=== PATIENT | female | born 1955 | race Caucasian/White ===

== ENCOUNTER 2021-01-22 00:52 | Day surgery (SDC) | payer OTHER, SELFPAY ==
[2021-01-15 11:40] VITALS: BMI 25.7
[2021-01-22 06:22] VITALS: BP 128/85; PULSE 69; RESP 17; TEMP 37.2; O2SAT 98; BMI 25.7
[2021-01-22] MEDS: LACTATED RINGERS 1,000 ML 150 ML IV CONT (06:33)
--- NOTE | 2021-01-22 06:41 | WPDANESEPPF ---
Anes - Initial Pre Proc Eval Procedure: Operation Date: 01/22/21 07:30 Proposed Procedures p Screening Colonoscopy - Davide Sanchez MD Date/Time: 01/22/21 06:41 Surgeon: Davide Sanchez MD Pre Op Diagnosis: neoplasm screening Patient Data Age: 65 Gender: F Height: 1.63 m Weight: 67.9 kg Last Vital Signs Temp 37.2 C 01/22/21 06:22 Pulse 69 01/22/21 06:22 Resp 17 01/22/21 06:22 BP 128/85 01/22/21 06:22 Pulse Ox 98 01/22/21 06:22 Allergies Allergy/AdvReac Type Severity Reaction Status Date / Time adhesive Allergy Severe RED RASH, Verified 01/22/21 06:21 ITCHING latex Allergy Severe RED SORES Verified 01/22/21 06:21 Home Medications Medication Instructions Recorded Confirmed Type calcium carbonate 500 mg calcium 500 mg PO DAILY 12/26/20 01/22/21 History (1,250 mg) tablet cholecalciferol (vitamin D3) 25 25 mcg PO DAILY 12/26/20 01/22/21 History mcg (1,000 unit) capsule multivitamin 1 tablet PO DAILY 12/26/20 01/22/21 History magnesium oxide 250 mg PO DAILY 01/15/21 01/22/21 History Patient hx anesthesia problems: none Family hx anesthesia problems: none PMFSH Past Medical History Medical History (Updated 01/22/21 @ 06:48 by Jose Hopkins DO) Hernia History of thyroid nodule removed History of vaginal delivery x 3 Surgical History Surgical History History of bilateral oophorectomy History of dilation and curettage History of hysterectomy, supracervical History of thyroidectomy History of tubal ligation Family History Family History Mother Hypertension, Onset Age: 84 Patient's mother is Grandparent Family history of coronary artery disease, Onset Age: 72 Father Patient's father is Social History Social History Smoking status: Never smoker Second hand tobacco smoke exposure: No Alcohol intake: current Drinks per week: 1 Substance use: never Living arrangements: with family Spiritual care concerns: No Anes - Eval Final PreProcedure Day of Procedure 01/22/21 06:41 Patient weight: overweight Heart: regular rate and rhythm Lungs: clear to auscultation and normal air movement Airway: Mallampati scale class II Neurological: alert and oriented Last oral intake: >/= 8 hours ASA classification: II Emergent: no Anesthetic plan: proceed Anesthesia type and monitoring: general GIVS and standard monitoring Informed Consent: The patient's anesthetic plan and its attendant risks and benefits were discussed with the patient/family/POA. Questions were solicited and answers provided to the satisfaction of the patient/family/POA.
--- NOTE | 2021-01-22 07:50 | WPDGICN ---
Assessment and Plan Assessment and plan (1) Encounter for screening colonoscopy: Code(s): Z12.11 - Encounter for screening for malignant neoplasm of colon Status: Acute Assessment and Plan: Patient presents for screening colonoscopy today. She appears to be at average risk for colon polyps. GI Consult Note Consult date/time: 01/22/21 07:50 HPI: Sera Mayorga is a 65 year old female Presents for screening colonoscopy. She reports that her current weight appetite bowel movements are normal. She denies abdominal pain. She has had bleeding. Family history is noncontributory. Patient presents for screening colonoscopy today. Review of Systems Review of Systems: All systems reviewed & are unremarkable except as noted in HPI and below PMFSH Past Medical History Medical History (Updated 01/22/21 @ 07:51 by Davide Sanchez MD) Hernia History of thyroid nodule removed History of vaginal delivery x 3 Surgical History Surgical History History of bilateral oophorectomy History of dilation and curettage History of hysterectomy, supracervical History of thyroidectomy History of tubal ligation Family History Family History Mother Hypertension, Onset Age: 84 Patient's mother is Grandparent Family history of coronary artery disease, Onset Age: 72 Father Patient's father is Social History Social History Smoking status: Never smoker Second hand tobacco smoke exposure: No Alcohol intake: current Drinks per week: 1 Substance use: never Living arrangements: with family Spiritual care concerns: No Meds Home Medications and Allergies Home Medications Medication Instructions Recorded Confirmed Type calcium carbonate 500 mg calcium 500 mg PO DAILY 12/26/20 01/22/21 History (1,250 mg) tablet cholecalciferol (vitamin D3) 25 25 mcg PO DAILY 12/26/20 01/22/21 History mcg (1,000 unit) capsule multivitamin 1 tablet PO DAILY 12/26/20 01/22/21 History magnesium oxide 250 mg PO DAILY 01/15/21 01/22/21 History Allergies Allergy/AdvReac Type Severity Reaction Status Date / Time adhesive Allergy Severe RED RASH, Verified 01/22/21 06:21 ITCHING latex Allergy Severe RED SORES Verified 01/22/21 06:21 Vital Signs Vital Signs - 24 hr 01/22/21 06:22 Temperature 99 F Pulse Rate 69 Respiratory Rate 17 Blood Pressure 128/85 Pulse Oximetry 98 Exam Narrative: Physical exam reveals patient to be alert. Vital signs are stable. HEENT exam is unremarkable. Patient is anicteric. Lungs are clear to auscultation and percussion. Heart is without murmur or extra sounds. Abdominal exam bowel sounds are present soft nontender with no organomegaly. Digital external rectal exam is normal.
[2021-01-22 07:51] VITALS: BP 101/55; PULSE 64; RESP 17; O2SAT 99
[2021-01-22 08:01] VITALS: BP 104/56; PULSE 67; RESP 17; O2SAT 97
[2021-01-22 08:11] VITALS: BP 102/62; PULSE 60; RESP 17; O2SAT 100
== END 2021-01-22 08:25 | disposition home or self-care (01) ==
PROVIDERS: PCP Internal Medicine; Visit Provider Internal Medicine Gastroenterology
PROC: 0DJD8ZZ Inspection of Lower Intestinal Tract, Via Natural or Artificial Opening Endoscopic (ICD-10-PCS; CPT 45378; principal; 2021-01-22 07:30)
DX: Z12.11 Encounter for screening for malignant neoplasm of colon (principal)
CPT/HCPCS: 45378; J2001; J2704; J7120

== ENCOUNTER 2021-09-23 23:40 | Emergency (ER) | payer MEDICARE, SELFPAY ==
[2021-09-23 23:56] VITALS: BP 113/69; PULSE 65; RESP 16; TEMP 37.2; O2SAT 98
--- NOTE | 2021-09-24 02:12 | PC.NURSE ---
Pt and family approached triage desk over concerns for wait time, stating they are going to leave. Pt ambulated out of ED with steady gait, in no obvious distress
== END 2021-09-24 03:22 | disposition left against medical advice (07) ==
LOC: ANHED 09-24 02:58
PROVIDERS: PCP Internal Medicine
DX: M79.669 Pain in unspecified lower leg (principal)
CPT/HCPCS: 99199

== ENCOUNTER 2022-08-11 08:00 | Outpatient (NON) | payer MEDICARE, SELFPAY | END 2022-08-11 08:01 | disposition home or self-care (01) | LOC: ANHLAB 08-12 12:44 | PROVIDERS: PCP Internal Medicine; Visit Provider Nurse Practitioner | DX: R22.9 Localized swelling, mass and lump, unspecified (principal) | CPT/HCPCS: 87070; 87075; 87205 ==

== ENCOUNTER 2023-06-13 10:14 | Emergency (ER) | payer MEDICARE, SELFPAY ==
[2023-06-13 10:32] VITALS: BP 97/62; PULSE 79; RESP 16; TEMP 37; O2SAT 97
--- NOTE | 2023-06-13 10:45 | ED.URI ---
HPI - URI/Sore Throat General Chief Complaint: Upper Respiratory Infection Stated Complaint: FEVER/BODY ACHES/NAUSEA/COUGH Time Seen by Provider: 06/13/23 10:45 Source: patient and RN notes reviewed Mode of arrival: ambulatory Limitations: no limitations History of Present Illness HPI Narrative: 67-year-old female presents with 4 day history of cough, chest congestion, nasal congestion, chills, fever. Reports symptoms started on Thursday. Reports she has been taking ibuprofen. MD elicited complaint: cough and sore throat Related Data Home Medications Medication Instructions Recorded Confirmed calcium carbonate 500 mg calcium 500 mg PO DAILY 12/26/20 06/13/23 (1,250 mg) tablet (Calcium 500) cholecalciferol (vitamin D3) 25 25 mcg PO DAILY 12/26/20 06/13/23 mcg (1,000 unit) capsule multivitamin (Daily Multi-Vitamin 1 tablet PO DAILY 12/26/20 06/13/23 tablet) glucosamine-chondroitin 250 mg-200 2 tablet PO DAILY 09/23/22 06/13/23 mg tablet (Osteo Bi-Flex) Allergies Allergy/AdvReac Type Severity Reaction Status Date / Time adhesive Allergy Severe RED RASH, Verified 06/13/23 10:24 ITCHING latex Allergy Severe RED SORES Verified 06/13/23 10:24 Review of Systems Review of Systems: CONSTITUTIONAL: Denies malaise, chills, sweats, or fever. EYES: Denies visual changes, redness, or discharge. ENT: Reports rhinorrhea, congestion CARDIOVASCULAR: Denies chest pain, palpitations, or edema. RESPIRATORY: Reports cough and chest congestion. Denies dyspnea. GASTROINTESTINAL: Denies abdominal pain, nausea, vomiting, diarrhea SKIN: Denies rash or itching. MUSCULOSKELETAL: Reports myalgia. All systems reviewed & are unremarkable except as noted in HPI and below PMFSH Past Medical History Medical History (Updated 06/13/23 @ 10:53 by Lubna Hernandez NP) Annual physical exam Encounter for annual routine gynecological examination Encounter for screening for malignant neoplasm of colon (06/10/16) Encounter for screening for malignant neoplasm of rectum (06/07/15) Hammer toe Hernia History of thyroid nodule removed History of vaginal delivery x 3 Hypothyroidism Nail fungus Postmenopausal Screening for cervical cancer Screening for cholesterol level Vitamin D deficiency Surgical History Surgical History History of bilateral oophorectomy History of dilation and curettage History of hysterectomy, supracervical History of thyroidectomy History of tubal ligation Family History Family History Mother Hypertension, Onset Age: 84 Patient's mother is Grandparent Family history of coronary artery disease, Onset Age: 72 Father Patient's father is Social History Social History (Updated 09/23/22 @ 09:03 by Ignacia Bey) Smoking status: Never smoker Second hand tobacco smoke exposure: No Alcohol intake: current Drinks per week: 1 Substance use: never Substance use type: does not use Lack of Transportation: No Lack of Food: Never True Current Housing: I Have Housing Concerned About Future Housing: No Difficulty Paying Gas/Electric Bills: No Difficulty Paying for Meds: No Currently Unemployed: No Difficulty w/ Childcare or Family Care: No Living arrangements: with family Occupation/Education: retired Gender identity (if verbalized by the patient): Female Sexual Orientation (if Verbalized by the Patient): Straight or Heterosexual Spiritual care concerns: No Comments At time of signature, agree with nursing past medical, surgical, social and family history. There is no relevant family history pertinent to the presenting complaint Exam Narrative: GENERAL: Nontoxic-appearing, well-nourished, and in no acute distress. HEAD: Normocephalic EYES: PERRLA, conjunctivae clear ENT: Nares clear. Mucous me
== END 2023-06-13 11:00 | disposition home or self-care (01) ==
PROVIDERS: Emergency Provider Nurse Practitioner; PCP Family Medicine
DX: J10.1 Influenza due to other identified influenza virus with other respiratory manifestations (principal); Z20.822 Contact with and (suspected) exposure to COVID-19; E89.0 Postprocedural hypothyroidism
CPT/HCPCS: 87426; 87804; 99213; G0463

== ENCOUNTER 2023-11-12 17:48 | Emergency (ER) | payer MEDICARE, SELFPAY ==
--- NOTE | ~2023-11-12 | CT_ITS ---
EXAMINATION: CT abdomen pelvis wo con DATE: 11/12/2023 19:09 INDICATION: R flank pain TECHNIQUE: Computed tomography (CT) of the abdomen and pelvis was performed without intravenous contr ast. Automated exposure control and iterative reconstruction technique were employed. The dose-length product was 453.42 mGy-cm. COMPARISON: None. FINDINGS: Lower thorax: Unremarkable Liver: Normal. Biliary/Gallbladder: Gallbladder is normal. No bile duct dilation. Pancreas: No mass or duct dilation. Spleen: Normal. Adrenals:No mass. Kidneys: No suspicious mass, obstructing stone, or hydronephrosis. Punctate bilateral nonobstructing calculi. GI tract: No small or large bowel dilation. Normal appendix. Mesentery/Peritoneum: No ascites, mass, or free air. Retroperitoneum: No mass. Pelvis: Absent uterus. Normal urinary bladder. Multiple punctate pelvic calcifications. The distal ur eters are poorly visualized due to small caliber and post surgical change. Soft Tissues: Soft tissues and body wall unremarkable. Bones: No acute osseous finding. IMPRESSION: No acute abdominopelvic process detected. Distal ureters are poorly visualized and there are multiple punctate calcifications in the pelvis sayra r the expected path of the bilateral ureters. A tiny distal collecting system stone is not entirely e xcluded although there is no evidence of significant inflammatory change or obstructive uropathy. Reviewed, dictated and finalized at location K. IMPRESSION: No acute abdominopelvic process detected. Distal ureters are poorly visualized and there are multiple punctate calcificat ions in the pelvis near the expected path of the bilateral ureters. A tiny dist al collecting system stone is not entirely excluded although there is no eviden ce of significant inflammatory change or obstructive uropathy.
[2023-11-12 17:49] VITALS: BP 125/78; PULSE 78; RESP 16; TEMP 36.6; O2SAT 100
[2023-11-12 18:44] LABS: Basophils Percent Auto 0.6 % (0.2-1.2); Eosinophils Absolute Auto 0.1 K/mm3 (0-0.3); Hematocrit 40.6 % (37.0-47.0); Hemoglobin 13.3 g/dL (12.0-15.0); Immature Granulocyte Absolute 0.01 K/mm3 (0.00-0.031); Immature Granulocyte Percent A 0.1 % (0-0.5); Lymphocytes Absolute Auto 2.69 K/mm3 (0.9-3.2); Lymphocytes Percent Auto 37.5 % (18.3-44.2); Mean Corpuscular HGB Conc 32.8 g/dl (32-36); Mean Corpuscular Hemoglobin 29.7 pg (26-34); Mean Corpuscular Volume 90.6 fl (80-100); Mean Platelet Volume 10.1 fl (7.4-10.4); Monocytes Absolute Auto 0.6 K/mm3 (0.1-0.6); Monocytes Percent Auto 8.8 % (2.6-8.5); Neutrophils Absolute Auto 3.7 K/mm3 (1.3-6.7); Platelet Count Result 245 k/mm3 (150-375); Red Blood Count 4.48 M/mm3 (4.2-5.4); Red Cell Distribution Width 13.2 % (11.5-14.5); White Blood Count 7.2 K/mm3 (4.5-10.0)
[2023-11-12 18:47] LABS: Appearance Urine Clear (Clear); Bilirubin Urine Negative (Negative); Blood Urine Negative (Negative); Color Urine Yellow (Yellow); Glucose Urine UA Negative (Negative); Ketones Urine Negative (Negative); Leukocyte Esterase Ur Negative LEU/UL (Negative); Nitrate Urine Negative (Negative); Protein Urine Negative (Negative); Urobilinogen Urine 0.2 mg/dL (<2.0); pH Urine 5.5 (5.0-9.0)
[2023-11-12 18:51] LABS: Add Urine Microscopic? NO
[2023-11-12 18:54] LABS: Alanine Aminotransferase 20 U/L (6-35); Albumin Level 4.6 g/dL (3.5-5.1); Alkaline Phosphatase 69 U/L (38-126); Anion Gap 7 mmol/L (4-12); Aspartate Amino Transferase 34 U/L (14-36); Bilirubin,Total 0.7 mg/dL (0.2-1.3); Blood Urea Nitrogen 21 mg/dL (7-17); Calcium 9.3 mg/dL (8.4-10.2); Carbon Dioxide 26 mmol/L (22-30); Chloride 104 mmol/L (98-107); Estimated CRCL calculation 51 ml/min; Estimated Glomerular Filt Rate > 60; Glucose 101 mg/dL (65-110); Potassium 4.1 mmol/L (3.4-5.0); Sodium 137 mmol/L (137-145)
[2023-11-12] MEDS: SODIUM CHLORIDE 0.9% IV 1,000 ML 999 ML IV CONT (19:00)
[2023-11-12 19:19] VITALS: BP 124/76; PULSE 60; RESP 16; O2SAT 100
[2023-11-12] MEDS: KETOROLAC 30 MG/ML VIAL (*BKC) IV PUSH (19:47)
--- NOTE | 2023-11-12 20:15 | ED.FEMALEGU ---
HPI - Female Genitourinary General Chief complaint: Urogenital-Female Stated complaint: kidney stone Time Seen by Provider: 11/12/23 18:54 Source: patient Mode of arrival: ambulatory Limitations: no limitations History of Present Illness HPI Narrative: Patient is a 68-year-old female who presents to the ED with report of right flank pain. Patient reports having pain since Thursday. She is concern for kidney stone. Denies previous history of kidney stones. Her primary care doctor started her on Flomax on Thursday. She does report pain slightly radiates to her right lower abdomen. Denies nausea, vomiting, diarrhea, constipation, fevers, dysuria, hematuria, SOB. Patient has not taken anything for pain at home. Related Data Home Medications Medication Instructions Recorded Confirmed calcium carbonate (Calcium 500) 500 mg PO DAILY 12/26/20 09/22/23 cholecalciferol (vitamin D3) 25 25 mcg PO DAILY 12/26/20 09/22/23 mcg (1,000 unit) capsule multivitamin (Daily Multi-Vitamin 1 tablet PO DAILY 12/26/20 09/22/23 tablet) turmeric 400 mg capsule mg PO 06/15/23 09/22/23 Allergies Allergy/AdvReac Type Severity Reaction Status Date / Time adhesive Allergy Severe RED RASH, Verified 11/09/23 09:53 ITCHING latex Allergy Severe RED SORES Verified 11/09/23 09:53 Review of Systems Review of Systems: CONSTITUTIONAL: Denies fever, chills, or sweats. GASTROINTESTINAL: Denies abdominal pain, nausea, vomiting, or diarrhea. GENITOURINARY: Denies dysuria or hematuria. MUSCULOSKELETAL: See HPI. All systems reviewed & are unremarkable except as noted in HPI and below PMFSH Past Medical History Medical History Annual physical exam Encounter for annual routine gynecological examination Encounter for screening for malignant neoplasm of colon (06/10/16) Encounter for screening for malignant neoplasm of rectum (06/07/15) Hammer toe Hernia History of thyroid nodule removed History of vaginal delivery x 3 Hypothyroidism Nail fungus Postmenopausal Screening for cervical cancer Screening for cholesterol level Vitamin D deficiency Surgical History Surgical History History of bilateral oophorectomy History of dilation and curettage History of hysterectomy, supracervical History of thyroidectomy History of tubal ligation Family History Family History Mother Hypertension, Onset Age: 84 Patient's mother is Grandparent Family history of coronary artery disease, Onset Age: 72 Father Patient's father is Social History Social History Smoking status: Never smoker Second hand tobacco smoke exposure: No Alcohol intake: current Drinks per week: 1 Substance use: never Substance use type: does not use Lack of Transportation: No Lack of Food: Never True Current Housing: I Have Housing Concerned About Future Housing: No Difficulty Paying Gas/Electric Bills: No Difficulty Paying for Meds: No Currently Unemployed: No Difficulty w/ Childcare or Family Care: No Living arrangements: with family Occupation/Education: retired Gender identity (if verbalized by the patient): Female Sexual Orientation (if Verbalized by the Patient): Straight or Heterosexual Spiritual care concerns: No Exam Narrative: GENERAL: Well appearing, well-nourished, non-toxic, in no acute distress. HEAD: Normocephalic, atraumatic. RESPIRATORY: Airway patent, respirations nonlabored. Clear to auscultation bilaterally, no rales, rhonchi, wheezing. CARDIOVASCULAR: Regular rate and rhythm without murmurs, rubs, or gallops. ABDOMINAL: Soft, No significant tenderness throughout abdomen, nondistended. Normoactive BS. Mild + CVA te
== END 2023-11-12 20:40 | disposition home or self-care (01) ==
PROVIDERS: Emergency Medicine; Emergency Provider Physician Assistant; PCP Family Medicine
DX: R10.9 Unspecified abdominal pain (principal); E03.9 Hypothyroidism, unspecified
CPT/HCPCS: 36415; 74176; 80053; 81003; 85025; 96361; 96374; 99284; J1885; J7030